=== PATIENT | male | born 1985 | race Caucasian/White ===

== ENCOUNTER 2017-05-28 08:49 | Emergency (ER) | payer OTHER ==
[~2017-05-28] VITALS: Ht 172.7 cm; Wt 85.5 kg
[~2017-05-28 08:49] MED LIST: FLEXERIL10 MG PO; LIDODERM 5% P1 PATCH TD; PREDNISONE10 MG PO
[2017-05-28] MEDS ORDERED: CILOXAN 0.100 DROP/5 RIGHT EYE (09:55)
[2017-05-28 10:12] VITALS: BP 122/64
== END 2017-05-28 10:15 | disposition home or self-care (01) ==
LOC: EME 08:49
DX: S05.01XA Injury of conjunctiva and corneal abrasion without foreign body, right eye, initial encounter (principal); X58.XXXA Exposure to other specified factors, initial encounter; F17.200 Nicotine dependence, unspecified, uncomplicated
CPT/HCPCS: 99281; 99283

== ENCOUNTER 2017-09-18 22:54 | Emergency (ER) | payer OTHER ==
[~2017-09-18] VITALS: Ht 170.2 cm; Wt 89.7 kg
[~2017-09-18 22:54] MED LIST changes: +CILOXAN 0.100 DROP/5 RIGHT EYE
[2017-09-19] MEDS ORDERED: PERCOCET 5/31 TABLET PO (00:07)
[2017-09-19 00:22] VITALS: BP 144/92
== END 2017-09-19 00:23 | disposition home or self-care (01) ==
LOC: EME 22:54
DX: S67.21XA Crushing injury of right hand, initial encounter (principal); S60.221A Contusion of right hand, initial encounter; M79.89 Other specified soft tissue disorders; W23.0XXA Caught, crushed, jammed, or pinched between moving objects, initial encounter; Y99.0 Civilian activity done for income or pay
CPT/HCPCS: 73130; 99281; 99284